=== PATIENT | female | born 1940 | race Caucasian/White ===

== ENCOUNTER → 2018-01-24 | Outpatient (CLI) | payer MEDICARE, OTHER ==
[~2018-01-24] MED LIST: ETAN50DI5 SQ; LEVO-3 PO; LISI5TAB25 PO; NAPR1TAB10 PO; NAPR220C12 PO; PREG100C44 PO; PREG150C33 PO; PREG50CA48 PO
== END ==
LOC: LAB 14:05
PROVIDERS: ATTEND Family Medicine
DX: I10 Essential (primary) hypertension (principal)
CPT/HCPCS: 36415; 82310; 82374; 82435; 82565; 82947; 84132; 84295; 84520

== ENCOUNTER → 2018-03-27 | Outpatient (CLI) | payer MEDICARE, OTHER ==
[~2018-03-27] MED LIST changes: +ASCO-182 PO; +CALC1TAB32 PO; +DICL100G39 TOP; +DULO20CA3 PO; +LEVO88TA45 PO
[2018-03-27 16:35] LABS: PLATELET COUNT, AUTOMATED 201 K/uL (150-450)
== END ==
LOC: LAB 16:03
PROVIDERS: ATTEND Family Medicine
DX: E03.9 Hypothyroidism, unspecified (principal); I10 Essential (primary) hypertension; G89.29 Other chronic pain; E55.9 Vitamin D deficiency, unspecified
CPT/HCPCS: 36415; 82040; 82247; 82306; 82310; 82374; 82435; 82565; 82947; 84075; 84132; 84155; 84295; 84443; 84450; 84460; 84520; 85025

== ENCOUNTER → 2018-05-15 | Outpatient (CLI) | payer MEDICARE, OTHER ==
[~2018-05-15] MED LIST changes: +LEVO75TA73 PO; +MIRT7.5T2 PO; +NYST15PO4 TP
== END ==
LOC: LAB 14:08
PROVIDERS: ATTEND Family Medicine
DX: E03.9 Hypothyroidism, unspecified (principal); I12.9 Hypertensive chronic kidney disease with stage 1 through stage 4 chronic kidney disease, or unspecified chronic kidney disease; N18.9 Chronic kidney disease, unspecified
CPT/HCPCS: 36415; 82310; 82374; 82435; 82565; 82947; 84132; 84295; 84443; 84520

== ENCOUNTER → 2018-08-07 | Outpatient (CLI) | payer MEDICARE, OTHER ==
[~2018-08-07] MED LIST changes: +FLU180SY11 IM; +TRAZ50TA34 PO
== END ==
LOC: LAB 15:53
PROVIDERS: ATTEND Family Medicine
DX: E03.9 Hypothyroidism, unspecified (principal); E11.9 Type 2 diabetes mellitus without complications
CPT/HCPCS: 36415; 82310; 82374; 82435; 82565; 82947; 84132; 84295; 84443; 84520

== ENCOUNTER → 2018-09-04 | Outpatient (CLI) | payer MEDICARE, OTHER ==
[~2018-09-04] MED LIST changes: +TRAM-420 PO
[2018-09-04 16:15] LABS: PLATELET COUNT, AUTOMATED 215 K/uL (150-450)
== END ==
LOC: LAB 15:53
PROVIDERS: ATTEND Family Medicine
DX: E03.9 Hypothyroidism, unspecified (principal); R53.83 Other fatigue
CPT/HCPCS: 36415; 82040; 82247; 82310; 82374; 82435; 82565; 82947; 84075; 84132; 84155; 84295; 84443; 84450; 84460; 84520; 85025

== ENCOUNTER 2018-12-13 14:00 | Outpatient (RCR) | payer MEDICARE, OTHER ==
[2018-09-20 14:39] VITALS: BP 145/94
[2018-09-20] MEDS: NS(*) 0.9% 100 ML BAG 100 ML IVPB PRN (15:01)
[2018-09-20 15:13] LABS: PLATELET COUNT, AUTOMATED 215 K/uL (150-450)
[2018-09-20 16:24] VITALS: BP 155/96
[2018-10-04 12:13] VITALS: BP 123/72
[2018-10-04] MEDS: LIDOCAINE/SOD BICARB 8.4% SYR ID PRN (12:26)
[2018-10-04] MEDS: NS(*) 0.9% 100 ML BAG 100 ML IVPB PRN (12:26)
[2018-10-21 14:32] VITALS: BP 182/77
[2018-10-21 14:57] LABS: PLATELET COUNT, AUTOMATED 219 K/uL (150-450)
[2018-10-21] MEDS: LIDOCAINE/SOD BICARB 8.4% SYR ID PRN (15:21)
[2018-10-21] MEDS: NS(*) 0.9% 100 ML BAG 100 ML IVPB PRN (15:21)
[2018-10-21 15:52] VITALS: BP 163/84
[2018-11-18 14:13] VITALS: BP 157/84
[2018-11-18] MEDS: LIDOCAINE/SOD BICARB 8.4% SYR ID PRN (14:29)
[2018-11-18] MEDS: NS(*) 0.9% 100 ML BAG 100 ML IVPB PRN (14:30)
[2018-11-18 15:30] VITALS: BP 142/69
[~2018-12-13 14:00] MED LIST changes: +ABAT125S ASDIRECTED; +ABATACEPT 250 MG SDV 750 MG in NS(*) 0.9% 100 ML BAG 100 ML IVPB ONE; +DEXTROSE 5%(*) 100 ML BAG 100 ML IVPB PRN; +LEVO50TA86 PO; +[UNRECOGNIZED DRUG - CODE] TP
[2018-12-13 14:15] VITALS: BP 128/80
[2018-12-13] MEDS: LIDOCAINE/SOD BICARB 8.4% SYR ID PRN (14:30)
[2018-12-13] MEDS: NS(*) 0.9% 100 ML BAG 100 ML IVPB PRN (14:30)
[2018-12-13 14:37] LABS: PLATELET COUNT, AUTOMATED 242 K/uL (150-450)
[2018-12-13] MEDS ORDERED: ABATACEPT 250 MG SDV 750 MG in NS(*) 0.9% 100 ML BAG 100 ML IVPB ONE (14:40)
[2018-12-13 15:46] VITALS: BP 133/80
== END 2018-12-19 ==
LOC: SPU 14:00
PROVIDERS: ATTEND Internal Medicine Rheumatology
DX: M06.9 Rheumatoid arthritis, unspecified (principal)
CPT/HCPCS: 84443; 85025; 85651; 86140; 96365; J0129; J7050; 82040; 82247; 82310; 82374; 82435; 82565; 82947; 84075; 84132; 84155; 84295; 84450; 84460; 84520

== ENCOUNTER → 2019-01-16 | Outpatient (CLI) | payer MEDICARE, OTHER ==
[~2019-01-16] MED LIST changes: -ABATACEPT 250 MG SDV 750 MG in NS(*) 0.9% 100 ML BAG 100 ML IVPB ONE; -DEXTROSE 5%(*) 100 ML BAG 100 ML IVPB PRN
== END ==
LOC: LAB 12:55
PROVIDERS: ATTEND Family Medicine
DX: E03.9 Hypothyroidism, unspecified (principal)
CPT/HCPCS: 36415; 84443

== ENCOUNTER → 2019-03-07 | Outpatient (CLI) | payer MEDICARE, OTHER ==
[~2019-03-07] MED LIST changes: +HYDR200T42 PO; +METH4TAB56 PO
== END ==
LOC: SPU 13:15
PROVIDERS: ATTEND Family Medicine
DX: E03.9 Hypothyroidism, unspecified (principal)
CPT/HCPCS: 84443

== ENCOUNTER 2019-04-04 13:00 | Outpatient (RCR) | payer MEDICARE, OTHER ==
[2019-01-10 14:07] VITALS: BP 171/87
[2019-01-10] MEDS: NS(*) 0.9% 100 ML BAG 100 ML IVPB PRN (14:25)
[2019-01-10] MEDS: LIDOCAINE/SOD BICARB 8.4% SYR ID PRN (14:25)
[2019-01-10 15:09] VITALS: BP 151/69
[2019-02-07 14:00] VITALS: BP 127/50
[2019-02-07 14:13] LABS: PLATELET COUNT, AUTOMATED 252 K/uL (150-450)
[2019-02-07 15:23] VITALS: BP 136/68
[2019-02-07] MEDS: NS(*) 0.9% 100 ML BAG 100 ML IVPB PRN (15:25)
[2019-02-07] MEDS: LIDOCAINE/SOD BICARB 8.4% SYR ID PRN (15:25)
[2019-03-07 13:13] VITALS: BP 129/60
[2019-03-07] MEDS: LIDOCAINE/SOD BICARB 8.4% SYR ID PRN (13:43)
[2019-03-07] MEDS: NS(*) 0.9% 100 ML BAG 100 ML IVPB PRN (13:43)
[2019-03-07 14:26] VITALS: BP 129/67
[~2019-04-04 13:00] MED LIST changes: +ABATACEPT 250 MG SDV 750 MG in NS(*) 0.9% 100 ML BAG 100 ML IVPB ONE; +DEXTROSE 5%(*) 100 ML BAG 100 ML IVPB PRN; -TRAZ50TA34 PO; +TRAZ50TA52 PO
[2019-04-04 13:14] VITALS: BP 133/67
[2019-04-04 13:35] LABS: PLATELET COUNT, AUTOMATED 243 K/uL (150-450)
[2019-04-04] MEDS ORDERED: ABATACEPT 250 MG SDV 750 MG in NS(*) 0.9% 100 ML BAG 100 ML IVPB ONE (13:35)
[2019-04-04] MEDS: LIDOCAINE/SOD BICARB 8.4% SYR ID PRN (13:51)
[2019-04-04] MEDS: NS(*) 0.9% 100 ML BAG 100 ML IVPB PRN (13:52)
== END 2019-04-09 ==
LOC: SPU 13:00
PROVIDERS: ATTEND Internal Medicine Rheumatology
DX: M06.9 Rheumatoid arthritis, unspecified (principal)
CPT/HCPCS: 84443; 85025; 85651; 86140; 96365; J0129; J7050; 82040; 82247; 82310; 82374; 82435; 82565; 82947; 84075; 84132; 84155; 84295; 84450; 84460; 84520